=== PATIENT | female | born 1990 | race Caucasian/White ===

== ENCOUNTER → 2023-11-12 13:14 | Outpatient (CLI) | payer OTHER, MEDICAID, SELFPAY ==
--- NOTE | 2023-11-12 13:17 | DI.US.S_ITS ---
PROCEDURE: US OB <= 14 WEEKS FETUS INDICATIONS: FOLLOW UP PERIGESTATIONAL BLEED - ASSESS SIZE. OUTSIDE/PRIOR DATING DATA: Last menstrual period (LMP): 08/17/2023. LMP-based estimated date of delivery (SALOMON): 05/23/2024. First dating scan (date and location): 10/11/2023. Estimated date of delivery (SALOMON) from first dating scan: 05/22/2024. The calculations are made using the clinical SALOMON of 05/23/2024. TECHNIQUE: Real-time scanning was performed of the fetus and maternal pelvic organs, with image documentation. Endovaginal scanning was also performed to better visualize the fetus and maternal ovaries. COMPARISON: None. FINDINGS: Embryo: [place]-rump length is present measuring 6.7 cm corresponding to 12 weeks 6 days. Heart rate: 155 beats per minute Small perigestational hemorrhage is present measuring 2.0 x 2.8 x 0.9 cm. Maternal organs: Ovaries demonstrate a left corpus luteal cyst.. IMPRESSION: Single live intrauterine with gestational age of 12 weeks 6 days on current exam. Small perigestational hemorrhage. We strive to produce accurate, complete, and clear reports of imaging services. To assist us in improving patient care, this report was composed using standard report templates and voice recognition software. Therefore, it may contain abnormal punctuation, insertions and/or omissions. Occasional wrong-word or sound-alike substitutions may occur. Though we review the report and make efforts to correct it, we do recommend that the report be read carefully in proper context to recognize any text inaccuracies. Dictated by: Gillian Grajeda M.D. on 11/12/2023 at 17:55 Approved by: Gillian Grajeda M.D. on 11/12/2023 at 17:57
[2023-11-12 14:18] LABS: Add Manual Diff / Slide Review NO; Basophils Absolute Auto 0 /uL (0-100); Basophils Percent Auto 0.3 % (0-2); Eosinophils Absolute Auto 100 /uL (0-450); Eosinophils Percent Auto 1.2 % (2-4); Hematocrit 33.2 % (36-46); Hemoglobin 11.9 g/dL (12.0-16.0); Lymphocytes Absolute Auto 2100 /uL (1100-4500); Lymphocytes Percent Auto 25.4 % (25-40); Mean Corpuscular Hemoglobin 33.3 PG (26-34); Mean Corpuscular Volume 92.6 fL (80-100); Monocytes Absolute Auto 300 /uL (0-900); Monocytes Percent Auto 3.9 % (3-14); Neutrophils Absolute Auto 5800 /uL (1500-7000); Neutrophils Percent Auto 69.2 % (50-75); Platelet Count 219 X10^3/uL (150-400); Red Blood Cell Count 3.58 X10^6/uL (4.0-5.2); Red Cell Distribution Width 12.4 % (11.6-14.8); White Blood Cell Count 8.4 X10^3/uL (4.5-11.0)
[2023-11-12 14:36] LABS: Hepatitis B Surface Antigen NEGATIVE s/c (NEGATIVE); Rubella Antibody IgG 3.7 IU/mL (>15)
[2023-11-12 14:53] LABS: HIV 1 & 2 Ab/Ag 4th Gen Combo NEGATIVE (NEGATIVE); Hep C Virus Ab w/Reflex Quant NEGATIVE s/c (NEGATIVE)
[2023-11-12 16:37] LABS: Appearance Urine UA CLEAR; Bilirubin Urine UA NEGATIVE (NEGATIVE); Color Urine UA YELLOW; Glucose Urine UA NEGATIVE (Negative); Ketones Urine UA NEGATIVE (NEGATIVE); Leukocyte Esterase Urine UA NEGATIVE (NEGATIVE); Nitrite Urine UA NEGATIVE (Negative); Occult Blood Urine UA NEGATIVE (Negative); Protein Urine UA NEGATIVE (Negative); Specific Gravity Urine UA >=1.030 (1.000-1.035); Urobilinogen Urine UA 0.2 E.U./dL (0.2)
[2023-11-14 11:08] LABS: Varicella IgG Antibody 857 index (Immune >165)
== END ==
LOC: US 13:16
PROVIDERS: Family Provider Family Medicine Geriatric Medicine; PCP Student in an Organized Health Care Education/Training Program; Referring Provider Family Medicine; Visit Provider Family Medicine
DX: O46.8X1 Other antepartum hemorrhage, first trimester (principal); Z3A.12 12 weeks gestation of pregnancy
CPT/HCPCS: 36415; 76801; 80055; 81003; 86787; 86803; 86850; 86900; 86901; 87086; 87389

== ENCOUNTER → 2024-01-07 12:43 | Outpatient (CLI) | payer OTHER, MEDICAID, SELFPAY ==
--- NOTE | 2024-01-07 12:44 | DI.US.S_ITS ---
PROCEDURE: US OB >= 14 WEEKS FETUS INDICATIONS: GROWTH OUTSIDE/PRIOR DATING DATA: Last menstrual period (LMP): 08/17/2023. LMP-based estimated date of delivery (SALOMON): 05/23/2024. First dating scan (date and location): 10/11/2023. Estimated date of delivery (SALOMON) from first dating scan: 05/22/2024. The calculations are made using the working SALOMON of 05/23/2024. TECHNIQUE: Real-time scanning was performed of the fetus, with image documentation and biometric measurements. Endovaginal scanning: No COMPARISON: None. FINDINGS: General: Presentation: Variable. Placenta: Placental position is posterior , without previa. Amniotic fluid index: 14.3 cm, normal range is 5-24 cm. Single deepest vertical pocket is 4.6 cm. heart rate: 145 beats per minute. Maternal cervical canal: 4.9 cm long. Normal lower limit is 2.5 cm. biometrics: Biparietal diameter: 4.6 cm, 20 week 0 day Head circumference: 16.9 cm, 19 week 4 day Abdominal circumference: 15.6 cm, 20 week 6 day Femur length: 3.5 cm, 21 week 1 day Clinically estimated gestational age: 20 week 3 day Composite gestational age from present scan: 20 week 3 day Estimated weight and percentile: 378 g, 66 percentile Anatomic survey: Neuro: Ventricles are non-dilated at less than 10 mm. Cisterna magna is normal at 3-11 mm. Cerebellum is normal in size and morphology. Nuchal skin fold: Normal at less than 6 mm between 14-21 weeks gestational age. Face: Nose and lips, facial profile are normal. Spine: No evidence for spina bifida. Heart: 4-chambered heart is present, with normal ventricular outflow tracts. Diaphragm: Diaphragm is intact. Stomach: Left-sided stomach is present. Kidneys: No hydronephrosis. Normal is less than 5 mm in 2nd trimester, less than 7 mm in 3rd trimester. Cord: 3-vessel cord has orthotopic insertion. Bladder: Normal in size. Extremities: All 4 extremities identified. IMPRESSION: Single live intrauterine consistent with 20 week 3 day gestation by current ultrasound Normal anatomic survey Approved by: Cuate Juarez M.D. on 01/07/2024 at 16:19
== END ==
PROVIDERS: Family Provider Family Medicine Geriatric Medicine; PCP Student in an Organized Health Care Education/Training Program; Referring Provider Family Medicine; Visit Provider Family Medicine
DX: Z34.82 Encounter for supervision of other normal pregnancy, second trimester (principal); Z3A.20 20 weeks gestation of pregnancy
CPT/HCPCS: 76811

== ENCOUNTER → 2024-02-04 10:27 | Outpatient (CLI) | payer OTHER, MEDICAID, SELFPAY ==
[2024-02-04 13:21] LABS: Hemoglobin 12.3 g/dL (12.0-16.0)
[2024-02-04 14:00] LABS: GTT (PREG) 1 Hour PP 50gm Dose 150 mg/dL (76-139)
== END ==
PROVIDERS: Family Provider Family Medicine Geriatric Medicine; PCP Student in an Organized Health Care Education/Training Program; Referring Provider Family Medicine; Visit Provider Family Medicine
DX: Z34.80 Encounter for supervision of other normal pregnancy, unspecified trimester (principal)
CPT/HCPCS: 82950; 85014; 85018

== ENCOUNTER → 2024-04-28 09:50 | Outpatient (CLI) | payer OTHER, SELFPAY ==
[2024-04-29 12:34] LABS: Strep Grp B PCR NEG for Grp B Strep
== END ==
PROVIDERS: Family Provider Family Medicine Geriatric Medicine; PCP Student in an Organized Health Care Education/Training Program; Visit Provider Family Medicine
DX: Z36.85 Encounter for antenatal screening for Streptococcus B (principal); Z3A.36 36 weeks gestation of pregnancy
CPT/HCPCS: 87653

== ENCOUNTER 2024-05-11 13:19 | Inpatient (IN) | payer OTHER, SELFPAY ==
--- NOTE | 2024-05-11 13:25 | P.TNLD_ITS ---
Visit Information Visit Information Comments/Additional reasons for admission: 33 yo at 38w2d for vaginal bleeding PFSH Medical History (Updated 12/19/23 @ 19:45 by Dinah Gibbs) Frequent UTI GERD (gastroesophageal reflux disease) Anxiety Surgical History (Updated 10/14/23 @ 13:10 by Diandra Gilbert, MACRINA) History of tonsillectomy and adenoidectomy [place] teeth extracted Family History (Updated 10/14/23 @ 13:12 by Diandra Gilbert RN) Father Diabetes mellitus Social History marital status: unmarried,living together number of children: 0 household members: significant other lives independently: Yes caregiver/support person: No housing: house pets and animals: Yes (thinking of getting a cat soon, aware of precautions) education level: college occupational status: employed current occupational exposures/hazards: No special diony needs: No travel history: over 6 months ago seatbelt use: always water heater temp set < 120 deg: Yes working smoke detector in home: Yes fire extinguisher in home: Yes carbon monox detector in home: Yes firearms in home: No do you feel safe at home: Yes Smoking Status: Former smoker Tobacco: How many years used: 10 second hand exposure: No alcohol intake: former substance use type: does not use during the past year weight has: increased > 10 lbs well-balanced diet: about half the time daily servings fruits/ve-4 caffeine: No Type(s) of exercise: walking
[2024-05-11 14:26] LABS: Add Manual Diff / Slide Review NO; Basophils Absolute Auto 0 /uL (0-100); Basophils Percent Auto 0.3 % (0-2); Eosinophils Absolute Auto 0 /uL (0-450); Eosinophils Percent Auto 0.4 % (2-4); Hematocrit 37.9 % (36-46); Hemoglobin 13.5 g/dL (12.0-16.0); Lymphocytes Absolute Auto 1700 /uL (1100-4500); Lymphocytes Percent Auto 16.5 % (25-40); Mean Corpuscular HGB Conc 35.5 % (30-36); Mean Corpuscular Hemoglobin 34.4 PG (26-34); Monocytes Absolute Auto 500 /uL (0-900); Neutrophils Absolute Auto 8000 /uL (1500-7000); Neutrophils Percent Auto 77.8 % (50-75); Platelet Count 204 X10^3/uL (150-400); Red Blood Cell Count 3.91 X10^6/uL (4.0-5.2); Red Cell Distribution Width 12.9 % (11.6-14.8); White Blood Cell Count 10.3 X10^3/uL (4.5-11.0)
--- NOTE | 2024-05-11 14:33 | DI.US.S_ITS ---
PROCEDURE: US OB LIMITED INDICATIONS: LIGHT BLEEDING ?ABRUPTION. BIOPHYSICAL. OUTSIDE/PRIOR DATING DATA: Last menstrual period (LMP): 08/17/2023 LMP-based estimated date of delivery (SALOMON): 05/23/2024 First dating scan (date and location): 10/11/2023 Estimated date of delivery (SALOMON) from first dating scan: 05/22/2024 The calculations are made using the working SALOMON of 05/23/2024 TECHNIQUE: Real-time scanning was performed of the fetus for biophysical profile, with image documentation. Endovaginal scanning: Not performed COMPARISON: [facility], OB >= 14 WEEKS FETUS, 01/07/2024, 13:03. FINDINGS: General: A single living intrauterine gestation is present. Presentation: Vertex Placenta: Placental position is posterior, without previa. Amniotic fluid index: 26.7 cm, normal range is 5-24 cm. Single deepest vertical pocket is 9.4 cm. heart rate: 145 beats per minute. Maternal cervical canal: Not well seen. Clinically estimated gestational age: 38 weeks, 2 days. Biophysical profile: Tone: 2 points. Movement: 2 points. Respiration: 0 points. Largest pocket of fluid: 2 points. IMPRESSION: 1. Single live intrauterine gestation with fetus in vertex presentation. heart rate is 145 beats per minute. Placenta position is posterior without gross placenta previa. 2. BELKYS is increased at 26.7 cm. 3. biophysical profile score is 6/8 with respiration scores 0. We strive to produce accurate, complete, and clear reports of imaging services. To assist us in improving patient care, this report was composed using standard report templates and voice recognition software. Therefore, it may contain abnormal punctuation, insertions and/or omissions. Occasional wrong-word or sound-alike substitutions may occur. Though we review the report and make efforts to correct it, we do recommend that the report be read carefully in proper context to recognize any text inaccuracies. Dictated by: Garland Spear M.D. on 05/11/2024 at 16:13 Approved by: Garland Spear M.D. on 05/11/2024 at 16:16
[2024-05-11 14:36] LABS: Alanine Aminotransferase 18 IU/L (<35); Albumin 3.8 g/dL (3.5-5.0); Albumin Globulin Ratio 1.3 (1.0-2.8); Aspartate Aminotransferase 23 IU/L (14-36); BUN Creatinine Ratio 12.5 (6-22); Blood Urea Nitrogen 6 mg/dL (7-17); Carbon Dioxide 18 mmol/L (22-32); Chloride 108 mmol/L (98-107); Estimated Glomerular Filt Rate > 60 mL/min (>60); Glucose 119 mg/dL (70-100); HEMOLYSIS < 15 (0-50); Sodium 135 mmol/L (137-145); Total Protein 6.8 g/dL (6.3-8.2); Uric Acid 4.2 mg/dL (2.5-6.2)
[2024-05-11 14:38] LABS: Alkaline Phosphatase 117 U/L (38-126); Bilirubin Total 0.5 mg/dL (0.2-1.3); Creatinine Urine Random 122.52 mg/dL; Potassium 3.7 mmol/L (3.4-5.1); Protein (Total) Urine Random 9 mg/dL (0-12); Protein Creatinine Ratio Urine 0.07 GRAM/24H
[2024-05-11 14:42] LABS: Appearance Urine UA CLEAR; Bilirubin Urine UA NEGATIVE (NEGATIVE); Color Urine UA YELLOW; Glucose Urine UA NEGATIVE (Negative); Ketones Urine UA NEGATIVE (NEGATIVE); Leukocyte Esterase Urine UA NEGATIVE (NEGATIVE); Nitrite Urine UA NEGATIVE (Negative); Occult Blood Urine UA 2+ (Negative); Protein Urine UA NEGATIVE (Negative); Specific Gravity Urine UA 1.025 (1.000-1.035); Urobilinogen Urine UA 0.2 E.U./dL (0.2)
[2024-05-11 14:47] LABS: RBC Urine 1-5/HPF (0-5/HPF); Urine Volume 10mL (spun); WBC Urine 0-1/HPF (0-5/HPF)
[2024-05-11 14:48] LABS: Bacteria Urine None Seen; Culture Indicated Urine Cult Not Indicated; Squamous Epithelial Cell Urine 0-1 /HPF (0-5/HPF)
--- NOTE | 2024-05-11 16:59 | PM.OBHP.IH.1 ---
OB HPI Date/Time Date of admission: 05/11/24 Date Patient Seen: 05/11/24 Time Patient Seen: 13:00 History of Present Condition Chief complaint: vaginal bleeding SALOMON Calculator Estimated Delivery Date Method Current WG Current Estimate 05/23/24 LMP (Certain) 38w 2d Other Estimates 05/22/24 Ultrasound #1 38w 3d Estimated Gestational Age (weeks): 38w2d : 3 Para: 0 care: good care Dating criteria OB: LMP confirmed by 1st trimester US Ultrasounds: normal 1st trimester US Obstetrical complications: none Medical complications OB: none Narrative: 33 yo presenting with vaginal bleeding. She was seen at [facility] ER with vaginal bleeding this AM. Spec exam done there showed a visually closed cervix with small volume blood at the os. She is not marly and is not havign any pain. No urianry sx. No vaginal itching/discharge. Preadmission Labs Last OB Lab Results: Blood Type A Positive 11/12/23 13:21 Antibody Screen Negative 11/12/23 13:21 Hct 37.9 % (36-46) 05/11/24 13:56 Hgb 13.5 g/dL (12.0-16.0) 05/11/24 13:56 Hep Bs Antigen Negative s/c (NEGATIVE) 11/12/23 13:21 Hepatitis C Antibody Negative s/c (NEGATIVE) 11/12/23 13:21 Rubella Antibody 3.7 IU/mL (>15) L 11/12/23 13:21 VZV IgG Antibody 857 index (Immune >165) 11/12/23 13:21 Glucose 1 Hr 50 gm 150 mg/dL (76-139) H 02/04/24 12:17 Group B Strep (PCR) Neg for grp b strep 04/28/24 09:50 Glucose Tolerance Testin hr (150) -: Urine: negative Genetic Screens: Cell-free DNA: Normal External Labs -: Urine: negative Prior (ies) Past Pregnancies Del. Date GA/Weeks Labor Lgth Wt Sex Route Outcome Anesthesia Place Delv Breastfeed Preg Comp Name 10/30/20 4-6 elective 06/30/23 4-6 spontaneous Delivery Date: 10/30/20 Last Updated by: Diandra Gilbert RN Rx only, no complications Delivery Date: 06/30/23 Last Updated by: Diandra Gilbert RN passed spontaneously, no complications Hx # Term Pregnancies: 0 Hx # Pregnancies: 0 Number of Living Children: 0 Multiple births: 0 Spontaneous abortions: 1 Ectopic pregnancies: 0 Elective abortions: 1 Evaluation Evaluation Baseline heart rate: 150 Variability: Minimal (3-5) monitor accelerations: Absent Monitor Decelerations: Variable (occasional variables at arrival, no resolved ) Contraction Frequency (minutes): 0 Status: Category ll Dilation (cm): 1.5 Effacement (%): 20 Dilation: 1-2 cm Effacement: 0-30% station: -3 Position of cervix: posterior Consistency: medium Mccullough score: 2 PFSH Medical History (Updated 12/19/23 @ 19:45 by Dinah Gibbs) Frequent UTI GERD (gastroesophageal reflux disease) Anxiety Surgical History (Updated 10/14/23 @ 13:10 by Diandra Gilbert RN) History of tonsillectomy and adenoidectomy [place] teeth extracted Family History (Updated 10/14/23 @ 13:12 by Diandra Gilbert RN) Father Diabetes mellitus Social History marital status: unmarried,living together number of children: 0 household members: significant other lives independently: Yes caregiver/support person: No housing: house pets and animals: Yes (thinking of getting a cat soon, aware of precautions) education level: college occupational status: employed current occupational exposures/hazards: No special diony needs: No travel history: over 6 months ago seatbelt use: always water heater temp set < 120 deg: Yes working smoke detector in home: Yes fire extinguisher in home: Yes carbon monox detector in home: Yes firearms in home: No do you feel safe at home: Yes Smoking Status: Former smoker Tobacco: How many years used: 10 second hand exposure: No alcohol intake: former substance use type: does not use during the past year weight has: increased > 10 lbs well-balanced diet: about half the time daily servings fruits/ve-4 caffeine: No Type(s) of exercise: walking Meds Home Medications and Allergies Home Medications Medication Instructions Recorded Confirmed Type Bacillus coagulans 1 billion cell cell PO 10/14/23 05/05/24 History chewable tablet (Probiotic (B. coagulans)) doxylamine succinate 25 mg tablet 25 mg PO BEDTIME PRN 10/14/23 05/05/24 History (Sleep Aid (doxylamine)) vitamin-ferrous sulfate tab PO 10/14/23 05/05/24 History 27 mg iron-folic acid 0.8 mg tablet pyridoxine (vitamin B6) 100 mg 100 mg PO DAILY 10/14/23 05/05/24 History tablet ondansetron 4 mg disintegrating 4 mg PO Q8H PRN nausea and 04/17/24 05/05/24 Rx tablet vomiting #30 tabs Allergies Allergy/AdvReac Type Severity Reaction Status Date / Time Sulfa (Sulfonamide Allergy Unknown Verified 05/05/24 10:06 Antibiotics) Review of Systems Review of Systems Narrative: + FM - LOF + vaginal bleeding - BOUDREAUX - Abd pain - vaginal dsicharge - dysuria OB Exam Narrative Exam Narrative: GEn: well appearing CV: Warm and well perfused Pulm: breathing comfortably on RA Abd: gravid, Non-tender : grossly nml external genitalia, slighyl bleeding noted on glove after check SVE: 1.5/20/-3/moderate/posterior MSK: scant symemtric edema Objective Labs 05/11/24 13:56 05/11/24 13:56 Labs: Laboratory Results - last 24 hr 05/11/24 13:56 WBC 10.3 RBC 3.91 L Hgb 13.5 Hct 37.9 MCV 97.0 MCH 34.4 H MCHC 35.5 RDW 12.9 Plt Count 204 Neut % (Auto) 77.8 H Lymph % (Auto) 16.5 L [place] % (Auto) 5.0 Eos % (Auto) 0.4 L Baso % (Auto) 0.3 Neut # (Auto) 8000 H Lymph # (Auto) 1700 [place] # (Auto) 500 Eos # (Auto) 0 Baso # (Auto) 0 Sodium 135 L Potassium 3.7 Chloride 108 H Carbon Dioxide 18 L BUN 6 L Creatinine 0.48 L Estimated GFR > 60 BUN/Creatinine Ratio 12.5 Glucose 119 H Uric Acid 4.2 Calcium 9.0 Total Bilirubin 0.5 AST 23 ALT 18 Alkaline Phosphatase 117 Total Protein 6.8 Albumin 3.8 Globulin 3.0 Albumin/Globulin Ratio 1.3 Urine Color Yellow Urine Appearance Clear Urine pH 6.0 Ur Specific [place] 1.025 Urine Protein Negative Urine Glucose (UA) Negative Urine Ketones Negative Urine Occult Blood 2+ H Urine Nitrate Negative Urine Bilirubin Negative Urine Urobilinogen 0.2 Ur Leukocyte Esterase Negative Urine RBC 1-5/hpf Urine WBC 0-1/hpf Ur Squamous Epith Cells 0-1 /hpf Urine Bacteria None seen Ur Culture Indicated? Cult not indicated Vol Urine Centrifuged 10ml (spun) U Random Total Protein 9 Urine Creatinine 122.52 Protein/Creatinin Ratio 0.07 Assessment and Plan Assessment and Plan Assessment and Plan narrative: 33 yo presenting with vaginal bleeding at 38w2d. NST initiated and non-reassuring. Initially with a few small variables which subsequently resolved, following by development on minimal variability and absent accelerations. Due to Cat II strip and vaginal bleeding, US was ordered to assess for abruption. US showed BPP 6/8 (0/2 for breathing) with new polyhydramnios and a possibly enlarged spleen. Due to non-reassuring FHT and new dx of poly, assumption made that labor would be poorly toelrated and pt remote from delivery so decision made to move to CS ## Vaginal bleeding at term ## SIUP at 38w2d ## 6/8 BPP: UA neg, wet mount negative aside from indeterminate trich due to age of sample. - Admit to LD - Peds at delivery - CBC, TS - Vertex on last check - GBS negative - Ancef for surgical ppx - Anesthesia consult ## failed 1 hr GTT, nml 3hr: awareness for baby counseling: It was explained to the patient that a section is a surgery to deliver the baby through an incision in the abdominal wall and uterus.? All procedures can be associated with risk and unforeseen complications, which can be immediate or delayed.? Risks and complications of section include, but are not limited to:? infection of the uterus, pelvic organs, or skin; inadvertent injury to internal organs such as the bowel, bladder, or possibly even the baby; blood loss, transfusion, and/or life-threatening hemorrhage requiring hysterectomy; blood clots in the legs, pelvic organs, or lungs; adverse reaction to medications or anesthesia during surgery; development of placenta accreta spectrum in a subsequent ; and increased risk of section in a subsequent . Time-Based Coding :: [TOTAL MINUTES] spent with patient and on the chart (including review of chart, obtaining history, exam, reviewing outside data, placing orders, documenting exam and treatment plan, and counseling patient) on [DATE].
[2024-05-11] MEDS: CITRIC ACID/SODIUM CITRATE 15 ML SOLUTION 30 ML PO (17:17)
[2024-05-11] MEDS: ACETAMINOPHEN IV 1,000 MG/100 ML VIAL 400 MG IV (17:35)
[2024-05-11] MEDS: CEFAZOLIN 2 GM/100 ML PREMIX 100 ML IV (17:40)
[2024-05-11] MEDS: TRANEXAMIC ACID 1,000 MG in SODIUM CHLORIDE 0.9% 100 ML 200 MG IV (18:00)
--- NOTE | 2024-05-11 18:00 | SUR.OPER ---
Supine on padded OR bed, head on pillow, arms secured on padded arm boards at <90 degrees abduction, legs uncrossed, safety belt at thigh, tape over blanket over lower legs.
[2024-05-11] MEDS: LACTATED RINGERS 1,000 ML 999 ML IV (18:30)
[2024-05-11 18:40] VITALS: BP 129/85; PULSE 108; RESP 11; TEMP 36.5; O2SAT 98
[2024-05-11 18:44] VITALS: BP 129/84; PULSE 105; RESP 12; O2SAT 100
[2024-05-11 18:49] VITALS: BP 136/85; PULSE 97; RESP 11; O2SAT 99
[2024-05-11] MEDS: ONDANSETRON 4 MG/2 ML INJ IV (18:52)
[2024-05-11] MEDS: OXYCODONE IR 5 MG TABLET PO ×2 (18:52→22:26)
[2024-05-11 18:54] VITALS: BP 136/86; PULSE 93; RESP 11; O2SAT 100
[2024-05-11] MEDS: HYDROMORPHONE 1 MG INJ IV (19:07)
[2024-05-11] MEDS: BENZOCAINE/MENTHOL 1 LOZ PKT 1 EACH PO (19:09)
--- NOTE | 2024-05-11 20:04 | PM.OBCS.1 ---
Operative Date/Time/Diagnoses Date of procedure: 05/11/24 Time of procedure: 17:56 Pre-op diagnosis: NRFHT remote from delivery, vaginal bleeding in Post-op diagnosis: other (s/p primary LTCS ) Procedure & Clinicians Procedure: Primary low-transverse Same procedure as scheduled: Yes Surgeon: Isabell Mcdowell Click Yes if Unassisted: No Middle School Resource Teacher: Kiersten Alvarenga Reason for Middle School Resource Teacher: Middle School Resource Teacher required for the safe, effective, and timely completion of this surgery. The assistant counsel was necessary to retract upon entry into the abdomen and uterus. Assisted with delivery of the with fundal pressure. Assisted with closure with retraction, holding suture, and closure of the contralateral fascia. Anesthesia Type: General (Anesthesia determined general) Operative Notes Findings: Normal uterus, ovaries, and tubes Closure Type: primary Specimen(s): cord blood and cord pH Intraoperative meds administered: Ketorolac and Tranexamic acid Applied: Catheter Estimated Blood Loss (mL): 600 Blood products transfused: none Procedure in detail: OPERATIVE COURSE: The patient was taken to the operating room where she was prepared and draped in the normal sterile fashion in the dorsal supine position with a leftward tilt. General anesthesia was initiated at 17:56. A [place] skin incision was then made with the scalpel and carried through to the underlying layer of fascia with the scalpel. The fascia was incised in the midline and the incision extended laterally bluntly. The rectus muscles were then in the midline, and the peritoneum was identified and entered bluntly. The peritoneal incision was then extended with good visualization of the bladder. Retraction was provided by the surgical appliances salesperson. The bladder blade was then inserted and the vesicouterine peritoneum identified and found to be well below the intended hysterotomy site so no bladder flap was created. The lower uterine segment was incised in a transverse fashion with the scalpel, with the surgical appliances salesperson providing suction. The uterine incision was then extended superolaterally by pulling superolaterally on both sides. Membranes were ruptured and fluid was clear. The bladder blade was removed the 's head was flexed out of [place] position and delivered atraumatically with fundal pressure by the surgical appliances salesperson. There was a loose nuchal cord x1 which was reduced after delivery. was found to have poor tone and pallor with minimal respiratory effort. The cord was clamped and cut immediately. The was handed off to the waiting nursing staff. Cord blood and cord gases were collected. Time of delivery was 1758. APGARS were 4 and 8 at one and five minutes respectively. The placenta was then delivered with gentle cord traction. Large volume of clot was found to be present behind the placenta with multiple irregularities/laceration appearing lesions within the placenta itself. The uterus was then exteriorized and cleared of all clots and debris. The uterine incision was repaired with 0 Vicryl in a running, locked fashion. A second layer of the same suture was used to obtain excellent hemostasis. The uterus was returned to the abdomen. The gutters were cleared of all clots. Hysterotomy was investigated and found to be hemostatic. The fascia was reapproximated with 0 Vicryl in a running fashion. The subcutaneous tissue was reapproximated with 3-0 vicryl. The skin was closed with 4-0 monocryl. The surgical appliances salesperson helped with retraction during closures. SPONGE AND NEEDLE COUNTS: Correct x3. DRESSING: Aquacel ANTICOAGULATION: SCDs applied prior to Surgery Preop antibiotics given (see MAR). The patient was taken to recovery room having tolerated procedure well. Time of : 175 weight: 3075g APGARS: 4 (points off for respirations (-2) tone (-1) grimace (-2) and color (-1)) at one minutes and 8 (off -1 for color, -1 for tone) Post-operative Condition: stable Disposition: PACU Aftercare: routine postop
[2024-05-12] MEDS: KETOROLAC 30 MG/ML VIAL IV ×3 (01:03→13:09)
[2024-05-12] MEDS: ACETAMINOPHEN 325 MG TABLET 650 MG PO ×4 (01:04→20:00)
[2024-05-12] MEDS: OXYCODONE IR 5 MG TABLET 10 MG PO ×5 (02:41→20:07)
[2024-05-12 06:43] LABS: Add Manual Diff / Slide Review NO; Basophils Absolute Auto 100 /uL (0-100); Basophils Percent Auto 0.5 % (0-2); Eosinophils Absolute Auto 0 /uL (0-450); Hematocrit 33.7 % (36-46); Lymphocytes Absolute Auto 1900 /uL (1100-4500); Lymphocytes Percent Auto 14.7 % (25-40); Mean Corpuscular HGB Conc 35.6 % (30-36); Mean Corpuscular Hemoglobin 34.7 PG (26-34); Mean Corpuscular Volume 97.3 fL (80-100); Monocytes Absolute Auto 900 /uL (0-900); Monocytes Percent Auto 6.4 % (3-14); Neutrophils Absolute Auto 10300 /uL (1500-7000); Neutrophils Percent Auto 78.4 % (50-75); Platelet Count 184 X10^3/uL (150-400); Red Blood Cell Count 3.47 X10^6/uL (4.0-5.2); White Blood Cell Count 13.2 X10^3/uL (4.5-11.0)
--- NOTE | 2024-05-12 07:47 | P.PNOB_ITS ---
Subjective - OB Subjective Patient comments: no complaints and pain well controlled [place] baby status: doing well and nursing well Narrative: having some incisional pain, controlled with oxy. with some colostrum let down. Having some vaginal bleeding. Has voided after cath removal. not yet passing gas Date Patient Seen: 05/12/24 Time Patient Seen: 07:48 Exam Vital Signs (past 8 hours): Oxygen Delivery Method Room Air Narrative Exam Narrative: Gen: well appearing, NAD, during exam Skin: no rashes or pallor Pulm: breathing comfortably on RA MSK: scant edema Objective Labs 05/12/24 06:21 05/11/24 13:56 Labs: Laboratory Results - last 24 hr 05/11/24 05/11/24 05/12/24 13:20 13:56 06:21 WBC 10.3 13.2 H RBC 3.91 L 3.47 L Hgb 13.5 12.0 Hct 37.9 33.7 L MCV 97.0 97.3 MCH 34.4 H 34.7 H MCHC 35.5 35.6 RDW 12.9 13.0 Plt Count 204 184 Neut % (Auto) 77.8 H 78.4 H Lymph % (Auto) 16.5 L 14.7 L [place] % (Auto) 5.0 6.4 Eos % (Auto) 0.4 L 0.0 L Baso % (Auto) 0.3 0.5 Neut # (Auto) 8000 H 24389 H Lymph # (Auto) 1700 1900 [place] # (Auto) 500 900 Eos # (Auto) 0 0 Baso # (Auto) 0 100 Sodium 135 L Potassium 3.7 Chloride 108 H Carbon Dioxide 18 L BUN 6 L Creatinine 0.48 L Estimated GFR > 60 BUN/Creatinine Ratio 12.5 Glucose 119 H Uric Acid 4.2 Calcium 9.0 Total Bilirubin 0.5 AST 23 ALT 18 Alkaline Phosphatase 117 Total Protein 6.8 Albumin 3.8 Globulin 3.0 Albumin/Globulin Ratio 1.3 Urine Color Yellow Urine Appearance Clear Urine pH 6.0 Ur Specific [place] 1.025 Urine Protein Negative Urine Glucose (UA) Negative Urine Ketones Negative Urine Occult Blood 2+ H Urine Nitrate Negative Urine Bilirubin Negative Urine Urobilinogen 0.2 Ur Leukocyte Esterase Negative Urine RBC 1-5/hpf Urine WBC 0-1/hpf Ur Squamous Epith Cells 0-1 /hpf Urine Bacteria None seen Ur Culture Indicated? Cult not indicated Vol Urine Centrifuged 10ml (spun) U Random Total Protein 9 Urine Creatinine 122.52 Protein/Creatinin Ratio 0.07 Blood Type A Positive Antibody Screen Negative Assessment & Plan Plan day: 1 plan OB: routine care, routine postop care and follow up 6 weeks Comments: 33 yo who is now POD 1 following primary LTCS for NRFHT remote from delivery and presumed placental abruption. Doing well PP aside from some inicisonal pain - Pain well controlled on oral medications, continue tylenol, ibuprofen and PRN oxycodone - Bleeding appropriate, Hgb with appropriate post-surgical drop - control plans: will discuss tomorrow - f/up for f/up at 6week PP visit
[2024-05-12] MEDS: PRENATAL VIT,CALC/IRON/FOLIC 1 TABLET 1 TAB PO (09:49)
[2024-05-12] MEDS: DOCUSATE 100 MG CAPSULE PO (09:49)
[2024-05-12] MEDS: IBUPROFEN 600 MG TABLET PO (20:00)
[2024-05-13] MEDS: OXYCODONE IR 5 MG TABLET 10 MG PO ×4 (01:11→14:01)
[2024-05-13] MEDS: ACETAMINOPHEN 325 MG TABLET 650 MG PO ×2 (03:27→09:43)
[2024-05-13] MEDS: IBUPROFEN 600 MG TABLET PO ×2 (03:28→09:42)
--- NOTE | 2024-05-13 08:57 | PM.OBDS.1 ---
Discharge Providers Provider Date of admission: 05/11/24 13:19 Discharge Date: 05/13/24 Primary care physician: Faustino Rosenberg MD Consults: 05/11/24 21:29 Consult to Gps Navigation Installer Routine Comment: 05/11/24 21:57 Consult to Gps Navigation Installer Routine Comment: Discharge provider: Isabell Mcdowell MD Summary Hospital Course Date Patient Seen: 05/13/24 Time Patient Seen: 08:58 Hospital Course: 33 yo presenting with vaginal bleeding at 38w2d. NST initiated and non-reassuring. Initially with a few small variables which subsequently resolved, following by development on minimal variability and absent accelerations. Due to Cat II strip and vaginal bleeding, US was ordered to assess for abruption. US showed BPP 6/8 (0/2 for breathing) with new polyhydramnios and a possibly enlarged spleen. Due to non-reassuring FHT and new dx of poly, assumption made that labor would be poorly tolerated and pt remote from delivery so decision made to move to CS Intraoperative, dx of placental abruption was supported by the visualized placenta. CS was otherwise uncomplicated. course complicated by pain which was somewhat expected due to general anesthesia without duramorph. She is now tolerating pain well with oral medications. She is with decent milk letdown. Baby has required phototherapy but was found to have a tongue tie which was released prior to discharge. Bleeding is minimal. She is voiding and stooling. She is consider IUD for control. She will let me know if she deicdes on IUD so it can be ordered prior ot her 6wk PP visit Peripartum Data Delivery Method: Emergency Section (placental abruption ) Time Spent with Patient Time attestation: Total time spent providing and/or coordinating discharge services: Objective Labs 05/12/24 06:21 05/11/24 13:56 Exam Vital Signs (past 8 hours): Oxygen Delivery Method Room Air Narrative Exam Narrative: GEN: well appearing, NAD, CV: warm and well perfused Pulm: breathing comfortably on RA Discharge Plan Discharge Plan Patient Disposition: Home Provider Discharge Comment: control website: [email or web address] Tylenol dosinmg per 24 hours Ibuprofen dosinmg per 24 hours, can take 6-800mg every 6-8 hours Gabapentin for nerve pain/pain at the incision Oxycodone for pain as well Continue taking Miralax for constipation which is common while on Oxycodone Discharge orders & Medications Prescriptions: New oxycodone 5 mg Tablet 5 mg PO Q4H PRN (Reason: Pain, Moderate (4-6)) Qty: 20 0RF gabapentin 300 mg capsule 300 mg PO BID PRN (Reason: incision pain) Qty: 30 0RF Continued ondansetron 4 mg tablet,disintegrating 4 mg PO Q8H PRN (Reason: nausea and vomiting) Qty: 30 0RF vit-ferrous sulfat-FA 27 mg iron- 0.8 mg tablet PO pyridoxine (vitamin B6) 100 mg tablet 100 mg PO DAILY Sleep Aid (doxylamine) 25 mg tablet 25 mg PO BEDTIME PRN Probiotic (B. coagulans) 1 billion cell tablet,chewable PO Follow up/Referrals: Faustino Rosenberg MD [Primary Care Provider] - Visit Report/Discharge Packet Stand Alone Forms: Patient Portal/API, Stroke Signs & Symptoms Discharge Data Primary Care Provider: Faustino Rosenberg
[2024-05-13] MEDS: DOCUSATE 100 MG CAPSULE PO (09:43)
[2024-05-13] MEDS: PRENATAL VIT,CALC/IRON/FOLIC 1 TABLET 1 TAB PO (09:44)
[2024-05-13] MEDS: MEASLES,MUMPS,RUBELLA VACC/PF 0.5 ML VIAL SUBCUT (14:03)
[2024-05-13 15:11] VITALS: BP 116/68; PULSE 79; RESP 16; TEMP 37.4
== END 2024-05-13 15:55 | disposition home or self-care (01) | DRG 540 ==
PROVIDERS: Admitting Provider Family Medicine; Family Provider Family Medicine Geriatric Medicine; PCP Student in an Organized Health Care Education/Training Program; Referring Provider Family Medicine; Visit Provider Family Medicine
PROC: 10D00Z1 Extraction of Products of Conception, Low, Open Approach (ICD-10-PCS; CPT 59514; principal; 2024-05-11 17:45)
DX: O76 Abnormality in fetal heart rate and rhythm complicating labor and delivery (principal); Z3A.38 38 weeks gestation of pregnancy; Z37.0 Single live birth; O40.3XX0 Polyhydramnios, third trimester, not applicable or unspecified; O45.93 Premature separation of placenta, unspecified, third trimester
CPT/HCPCS: 36415; 59050; 59514; 76815; 76819; 80053; 81001; 82570; 84156; 84550; 85025; 86850; 86900; 86901; 87210; G0379; J0131; J0330; J0690; J1100; J1171; J1885; J2250; J2405; J2704; J3010